=== PATIENT | female | born 1990 | race Caucasian/White ===

== ENCOUNTER 2025-08-15 11:24 | Emergency (ER) | payer SELFPAY ==
[2025-08-15 11:26] VITALS: BP 159/112; PULSE 100; RESP 16; TEMP 36.7; O2SAT 94
[2025-08-15] MEDS: predniSONE 20 MG TAB 40 MG PO (11:57)
[2025-08-15] MEDS: Cetirizine 10 MG TAB PO (11:57)
[2025-08-15] MEDS: Famotidine 20 MG TAB 40 MG PO (11:57)
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
== END 2025-08-15 12:43 | disposition home or self-care (01) ==
LOC: ER 12:45
PROVIDERS: Emergency Provider General Practice
DX: T65.891A Toxic effect of other specified substances, accidental (unintentional), initial encounter (principal); L25.8 Unspecified contact dermatitis due to other agents
CPT/HCPCS: 99283 ×2; J7512